=== PATIENT | female | born 1980 | race Caucasian/White ===

== ENCOUNTER 2018-05-27 01:12 | Emergency (ER) | payer MEDICAID ==
[2018-05-27 01:41] VITALS: RESP 20; BMI 32.5
--- NOTE | 2018-05-27 01:47 | ED PDOC ---
Arrival/HPI - General Historian: Patient - History of Present Illness Narrative History of Present Illness (Text): 05/27/18 01:50 Patient is a 37-year-old A1 who is 24 weeks and 4 days by first trimester ultrasound who presents to the [facility] for left-sided upper extremity numbness and pain. Patient states she was sleeping on her left side (per usual during her ) and woke up with pain in her arm that went down to her left hand. Patient states this made her anxious and she began feeling palpitations, which she says, prompted her to check her BP and HR at home. Patient states her BP was within normal limits, however she says she was worried because her HR was 100-115bpm. Patient otherwise denies chest pain, shortness of breath, dizziness, diaphoresis, nausea, vomiting, abdominal pain, blurred vision, neck pain, and/or back pain. Time/Duration: 1/2 hour Symptom Onset: Sudden Symptom Course: Improving Quality: Cramping Severity Level: 5 Activities at Onset: Sleeping <Vicki Varela - Last Filed: 05/27/18 02:55> <Elbert Olivera - Last Filed: 05/27/18 05:22> - General Chief Complaint: Palpitations Time Seen by Provider: 05/27/18 01:23 Past Medical History - Provider Review Nursing Documentation Reviewed: Yes - Tetanus Immunization Tetanus Immunization: Unknown - Past Medical History Past Medical History: No Previous - Neurological Hx Migraine: Yes - Renal Hx Renal Disorder: Yes Hx Kidney Stones: Yes - Musculoskeletal/Rheumatological Hx Falls: No - Psychiatric Hx Psychophysiologic Disorder: No Hx Depression: No Hx Emotional Abuse: No Hx Physical Abuse: No Hx Substance Use: No - Past Surgical History Past Surgical History: No Previous - Surgical History Hx Section: Yes (x 2) - Anesthesia Hx Anesthesia: Yes Hx Anesthesia Reactions: No Hx Malignant Hyperthermia: No - Suicidal Assessment Feels Threatened In Home Enviroment: No <Vicki Varela - Last Filed: 05/27/18 02:55> Family/Social History - Physician Review Nursing Documentation Reviewed: Yes Family/Social History: Unknown Family HX Smoking Status: Never Smoked Hx Alcohol Use: No Hx Substance Use: No Hx Substance Use Treatment: No <Vicki Varela - Last Filed: 05/27/18 02:55> Allergies/Home Meds <AnujaVicki sullivan - Last Filed: 05/27/18 02:55> <Elbert Olivera - Last Filed: 05/27/18 05:22> Allergies/Adverse Reactions: Allergies No Known Allergies Allergy (Verified 04/04/16 09:55) Home Medications: Home Meds Medication Instructions Recorded Confirmed Vit Calc,Iron,Folic 1 each PO DAILY 04/04/16 05/27/18 [ Vitamins] Review of Systems - Review of Systems Constitutional: Normal Eyes: Normal ENT: Normal Respiratory: Normal Cardiovascular: Palpitations. absent: Chest Pain, Calf Pain Gastrointestinal: Normal. absent: Abdominal Pain, Nausea, Vomiting Genitourinary Female: Normal. absent: Dysuria, Frequency Musculoskeletal: Normal Skin: Normal Neurological: Normal Endocrine: Normal Hemo/Lymphatic: Normal Psychiatric: Normal <Vicki Varela - Last Filed: 05/27/18 02:55> Physical Exam Vital Signs Reviewed: Yes Vital Signs Temp Pulse Resp BP Pulse Ox 05/27/18 01:25 97.7 F 96 H 20 150/76 99 Temperature: Afebrile Blood Pressure: Hypertensive Pulse: Tachycardic Respiratory Rate: Normal Appearance: Positive for: Well-Appearing, Comfortable Pain Distress: None Mental Status: Positive for: Alert and Oriented X 3 - Systems Exam Head: Present: Atraumatic, Normocephalic Pupils: Present: PERRL Extroacular Muscles: Present: EOMI Conjunctiva: Present: Normal Mouth: Present: Moist Mucous Membranes Neck: Present: Normal Range of Motion Respiratory/Chest: Present: Clear to Auscultation, Good Air Exchange. No: Accessory Muscle Use Cardiovascular: Present: Normal S1, S2, Tachycardic. No: Murmurs, Irregular Rhythm Abdomen: Present: Normal Bowel Sounds. No: Peritoneal Signs Upper Extremity: Present: Normal Inspection. No: Cyanosis, Edema Lower Extremity: Present: Normal Inspection. No: Edema Neurological: Present: GCS=15, CN II-XII Intact, Speech Normal Skin: Present: Warm, Dry, Rashes, Normal Color Psychiatric: Present: Oriented x 3, Normal Insight, Normal Concentration <Vicki Varela - Last Filed: 05/27/18 02:55> Vital Signs Temp Pulse Resp BP Pulse Ox 05/27/18 01:25 97.7 F 96 H 20 150/76 99 <Elbert Olivera - Last Filed: 05/27/18 05:22> Medical Decision Making ED Course and Treatment: 05/27/18 02:55 IMPRESSION Patient is a 37-year-old A1 who is 24 weeks and 4 days by first trimester ultrasound who presents to the [facility] Department for left-sided upper extremity numbness and pain and palpitations. ASSESSMENT/PLAN Palpitations - Tachycardia; Likely secondary to - Blood pressure repeated 120/70 - Tachycardia improved - Normal sinus rhythm no ST elevations (read by me; see official report) Mild Leukocytosis on CBC - Likely secondary to - Afebrile 05/27/18 03:00 - Lab Interpretations I have reviewed the lab results: Yes <Vicki Varela - Last Filed: 05/27/18 02:55> ED Course and Treatment: Patient Seen with Resident: In agreement with resident note which contains more details about the patient. Patient seen and evaluated with resident. Came up with plan and treatment together. Pt, currently 24 weeks, P:2 A:1, presented for left-sided upper extremity numbness and pain. <Elbert Olivera - Last Filed: 05/27/18 05:22> - PA / TENT WORKER / Resident Statement / has reviewed & agrees with the documentation as recorded. / has examined the patient and agrees with the treatment plan. <Elbert Olivera - Last Filed: 05/27/18 05:22> Disposition/Present on Arrival - Present on Arrival Any Indicators Present on Arrival: Yes History of DVT/PE: No History of Uncontrolled Diabetes: No Urinary Catheter: No History of Decub. Ulcer: No History Surgical Site Infection Following: None - Disposition Have Diagnosis and Disposition been Completed?: Yes Disposition Time: 03:01 Patient Plan: Discharge <Vicki Varela - Last Filed: 05/27/18 02:55> - Present on Arrival Any Indicators Present on Arrival: No - Disposition Have Diagnosis and Disposition been Completed?: Yes <Elbert Olivera - Last Filed: 05/27/18 05:22> - Disposition Diagnosis: Palpitations Disposition: HOME/ ROUTINE Condition: IMPROVED Discharge Instructions (ExitCare): Palpitations (DC) Additional Instructions: Return to the ED immediately if your symptoms recur. Referrals: Mac Gant MD [Primary Care Provider] - Follow up with primary Forms: [employer] (Icelandic)
[2018-05-27 02:42] LABS: PH,URINE 6.5 (4.7-8.0); URINE BILIRUBIN NEGATIVE (NEGATIVE); URINE BLOOD NEGATIVE (NEGATIVE); URINE GLUCOSE (UA) NEGATIVE (NEGATIVE); URINE LEUKOCYTE ESTERASE NEGATIVE Leu/uL (NEGATIVE); URINE PROTEIN NEGATIVE mg/dL (<30 mg/dL); URINE UROBILINOGEN 0.2 E.U./dL (<1 E.U./dL)
[2018-05-27 02:43] LABS: BASO # 0.02 K/mm3 (0.0-2.0); BASO % 0.2 % (0.0-3.0); EOS # 0.3 (0.0-0.7); GRAN # 8.63 (1.4-6.5); GRAN % 67.4 % (50.0-68.0); HEMOGLOBIN 10.7 g/dL (12.0-16.0); LYMPH # 2.9 (1.2-3.4); LYMPH % 22.4 % (22.0-35.0); MEAN CELL VOLUME 87.1 fl (80.0-105.0); MEAN CORPUSCULAR HEMOGLOBIN 27.5 pg (25.0-35.0); MEAN CORPUSCULAR HGB CONC 31.6 g/dl (31.0-37.0); MEAN PLATELET VOLUME 8.8 fl (7.0-11.0); RBC 3.89 10^6/uL (3.5-6.1); RED CELL DISTRIBUTION WIDTH 14.8 % (11.5-14.5); WHITE BLOOD COUNT 12.8 10^3/uL (4.5-11.0)
[2018-05-27 02:43] LABS: URINE APPEARANCE CLEAR (CLEAR); URINE COLOR YELLOW (YELLOW)
[2018-05-27 02:45] LABS: ALBUMIN 3.6 g/dL (3.0-4.8); ALT/SGPT 19 U/L (7-56); AST/SGOT 23 U/L (14-36); BLOOD UREA NITROGEN 4 mg/dL (7-21); CALCIUM 9.7 mg/dL (8.4-10.5); GFR NON-AFRICAN AMERICAN > 60
[2018-05-27 02:55] VITALS: BP 120/70; PULSE 95; O2SAT 98
[2018-05-27 03:06] VITALS: TEMP 97.8
[2018-05-27 03:32] LABS: INR 0.98; PROTHROMBIN TIME 11.2 SECONDS (9.4-12.5)
[2018-05-27 05:01] LABS: PARTIAL THROMBOPLASTIN TIME 20.3 Seconds (25.1-36.5)
--- NOTE | 2018-05-27 18:46 | CARD ---
APPROVED REPORT Date of service: 05/27/2018 EKG Measurement Heart [id number] <Conclusion> Normal sinus rhythm Normal ECG
== END 2018-05-27 03:13 | disposition home or self-care (01) ==
LOC: ED 01:12
DX: R00.2 Palpitations (principal); O26.892 Other specified pregnancy related conditions, second trimester; Z3A.24 24 weeks gestation of pregnancy